=== PATIENT | female | born 1975 | race Caucasian/White ===

== ENCOUNTER 2018-05-09 21:27 | Outpatient (CLI) ==
[2018-05-09 21:50] VITALS: BMI 17.5
== END 2018-05-09 21:33 | disposition short-term general hospital (02) ==
LOC: AMBL 21:27
PROVIDERS: ATTEND Internal Medicine Geriatric Medicine
DX: R51 Headache (principal); M79.605 Pain in left leg; M79.604 Pain in right leg; M79.602 Pain in left arm; M79.601 Pain in right arm; M54.2 Cervicalgia; M25.512 Pain in left shoulder; S01.512A Laceration without foreign body of oral cavity, initial encounter; Y04.2XXA Assault by strike against or bumped into by another person, initial encounter

== ENCOUNTER 2018-05-09 21:41 | Emergency (ER) | payer OTHER ==
[2018-05-09 21:50] VITALS: TEMP 97.7; BMI 17.5
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
[2018-05-10 06:48] VITALS: BP 111/74
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
== END 2018-05-09 23:45 | disposition home or self-care (01) ==
LOC: ED 21:41
DX: M25.512 Pain in left shoulder (principal); M54.2 Cervicalgia; R51 Headache; M25.552 Pain in left hip; M25.551 Pain in right hip; M25.572 Pain in left ankle and joints of left foot; F17.210 Nicotine dependence, cigarettes, uncomplicated; Y04.0XXA Assault by unarmed brawl or fight, initial encounter
CPT/HCPCS: 36415; 84703; 99283

== ENCOUNTER 2019-02-28 15:20 | Inpatient (IN) ==
[2019-02-28] MEDS ORDERED: SODIUM CHLORIDE 1,000 ML IV STA (15:37)
[2019-02-28] MEDS ORDERED: TORADOL IVP STA (15:44)
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
[2019-02-28] MEDS ORDERED: LEVAQUIN 500 MG in PREMIX 100 ML D5W 1 BAG IV STA (16:58)
[2019-02-28] MEDS ORDERED: LEVAQUIN 100 ML IV ONE (17:05)
--- NOTE | 2019-02-28 18:05 | CT ---
EXAM: CT scan of the abdomen and pelvis without contrast CLINICAL HISTORY: flank pain, UTI TECHNIQUE: Helical imaging of the abdomen pelvis was performed without contrast. 3 mm thin axial im ages and coronal and sagittal reconstructions were provided for interpretation. Comparison none. FINDINGS: There is prominent swelling of the right kidney compared to the left kidney. The calyces of the kidneys are not dilated. The proximal ureters are not dilated. The small and large bowel loo ps are normal caliber. There is no free air. There has been previous cholecystectomy. The appendix was normal. The helical images obtained through the pelvis demonstrate a normal appearance of the rectum, urinary bladder. There is no free fluid seen within the pelvis. No retroperitoneal abnormalities are seen. Lung bases are clear. No lytic or blastic lesions are seen within the osseous structures. IMPRESSION: There is prominent swelling of the right kidney and the findings are suspicious for acut e right pyelonephritis. Limited evaluation without intravenous and oral contrast. There is no bowel obstruction.
[2019-02-28] MEDS ORDERED: TYLENOL PO STA (18:45)
[2019-02-28] MEDS ORDERED: LOVENOX SUBCUT SCH (19:00)
[2019-02-28] MEDS ORDERED: AZACTAM ONE (20:05)
[2019-02-28] MEDS: AZACTAM 1 GM in SODIUM CHLORIDE 50 ML IV SCH ×2 (20:19→20:39)
[2019-02-28] MEDS: SODIUM CHLORIDE 1,000 ML IV SCH (20:20)
[2019-02-28 20:57] VITALS: BMI 17.4
[2019-03-01] MEDS: SODIUM CHLORIDE 1,000 ML IV SCH ×3 (02:35→21:12)
[2019-03-01] MEDS ORDERED: ZOFRAN 4 MG/2 ML IVP PRN (08:03)
[2019-03-01] MEDS ORDERED: LIBRIUM PO PRN (08:05)
[2019-03-01] MEDS: PROTONIX PO SCH (08:18)
[2019-03-01] MEDS: AZACTAM 1 GM in SODIUM CHLORIDE 50 ML IV SCH ×2 (08:18→20:40)
[2019-03-01] MEDS: K-DUR PO SCH ×2 (08:18→20:41)
[2019-03-01] MEDS: LEVAQUIN 500 MG in PREMIX 100 ML D5W 1 BAG IV SCH (09:08)
--- NOTE | 2019-03-01 09:21 | PCM.PROG ---
Attending Provider: ATTENDING PROVIDER: [facility] This patient is seen with Lupe Handley, Nurse Practitioner. DATE OF SERVICE: 03/01/19 SUBJECTIVE: This 43 year old WHITE/ F was hospitalized 02/28/19. The patient is resting comfortably. She seems to be calm. No fever this morning. REVIEW OF SYSTEMS: CONSTITUTIONAL: No night sweats. No fatigue, malaise, lethargy. Fever. HEENT: Eyes: No visual changes. No eye pain. No eye discharge. ENT: No runny nose. No epistaxis. No sinus pain. No odynophagia. No congestion. RESPIRATORY: No cough, no congestion. No hemoptysis. No shortness of breath. CARDIOVASCULAR: No angina symptoms. No CHF symptoms. No atypical chest pain for CAD. No palpitations. No orthopnea.. GASTROINTESTINAL: No abdominal pain. No nausea or vomiting. No diarrhea or constipation. No hematemesis. No hematochezia. GENITOURINARY: No urgency. No frequency. No dysuria. No hematuria. No obstructive symptoms. No discharge. No pain. No significant abnormal bleeding. MUSCULOSKELETAL: No musculoskeletal pain; no joint swelling. Lower abdominal pain. NEUROLOGICAL: Awake, alert, oriented to time, place and person. No headache. No neck pain. No syncope. No seizures. No dizziness. PSYCHIATRIC: Not anxious. No depression. No suicidal thoughts. No homicidal thoughts. SKIN: No rash. No lesions. No wounds. ENDOCRINE: No unexplained weight loss. No weight gain. HEMATOLOGIC/LYMPHATIC: No anemia. No purpura. No petechiae. No prolonged or excessive bleeding. No palpable lymph nodes. PHYSICAL EXAMINATION: GENERAL: The patient is awake, alert and oriented, lying in bed in no distress. VITAL SIGNS: Temperature 98.8 F, Pulse 91, Respiratory Rate 16, BP 97/70, Pulse Ox 98% HEENT: Head normocephalic, atraumatic. Eyes: Extraocular muscles are intact. Pupils are equal, round and reactive to light and accommodation. Ears: No lesions. Nose appeared normal. Throat: No exudate or erythema. NECK: Supple. No JVD, no carotid bruit. No lymphadenopathy or thyromegaly. LUNGS: Diminished breath sounds. Clear to auscultation. Percussion note normal. Chest symmetrical. HEART: S1, S2, no S3. No murmurs. No cyanosis or clubbing. No ascites. Pulses: Dorsalis pedis and posterior tibial pulses +1 to +2 both sides. ABDOMEN: Soft. Non-tender. Bowel sounds active. No CVA tenderness. No mass felt. EXTREMITIES: No edema. Full range of motion of all extremities, equal. NEUROLOGIC: No focal deficit. Cranial nerves II through XII are grossly intact. No headache, no double vision or headache. SKIN: Not dry. Intact. Turgor-normal. LYMPHATIC: No palpable lymph nodes/no lymphedema. MUSCULOSKELETAL: Normal joints with no swelling. Muscle tone is normal. LAB REVIEW: 03/01/19 04:48 03/01/19 04:48 03/01/19 04:48: Sodium 138.9, Potassium 3.30 L, Chloride 109.2 H, Carbon Dioxide 23.5, Anion Gap 9.50, BUN 8.4, Creatinine 0.50 L, Estimated GFR (MDRD) 133.00, BUN/Creatinine Ratio 16.80, Glucose 112.2 H, Calcium 7.84 L, Total Bilirubin < 0.10 L, AST 23.0, ALT 17.8, Alkaline Phosphatase 87.4 D, Total Protein 5.43 L, Albumin 2.82 L, Globulin 2.61, Albumin/Globulin Ratio 1.08 03/01/19 04:48: WBC 14.00 H, RBC 3.50 L, Hgb 11.2 L, Hct 33.2 L, MCV 94.9, MCH 32.0 H, MCHC 33.7, RDW Coeff of Annelise 13.5, Plt Count 424, Immature Gran % (Auto) 0.4, Neut % (Auto) 67.7, Lymph % (Auto) 16.6, Potter % (Auto) 11.6 H, Eos % (Auto ) 3.2, Baso % (Auto) 0.5, Immature Gran # (Auto) 0.1, Neut # (Auto) 9.5 H, Lymph # (Auto) 2.3, Potter # (Auto) 1.6, Eos # (Auto) 0.5, Baso # (Auto) 0.1 02/28/19 15:55: Serum , Qual Negative 02/28/19 15:55: Lactic Acid 2.29 H 02/28/19 15:55: Procalcitonin 0.16 02/28/19 15:55: Sodium 136.2, Potassium 3.21 L, Chloride 100.2, Carbon Dioxide 23.5, Anion Gap 15.71, BUN 11.6, Creatinine 0.64, Estimated GFR (MDRD) 100.00, BUN/Creatinine Ratio 18.12, Glucose 100.6, Calcium 9.23, Total Bilirubin 0.31, AST 22.2, ALT 24.6, Alkaline Phosphatase 115.1, Total Protein 7.44, Albumin 4.30 , Globulin 3.14, Albumin/Globulin Ratio 1.36, Lipase 60.3 02/28/19 15:55: WBC 18.57 H, RBC 4.01 L, Hgb 12.8, Hct 37.6, MCV 93.8, MCH 31.9 H, MCHC 34.0, RDW Coeff of Annelise 13.3, Plt Count 487 H, Immature Gran % (Auto) 0.4 , Neut % (Auto) 80.9, Lymph % (Auto) 9.6 L, Potter % (Auto) 7.5, Eos % (Auto) 1.2 , Baso % (Auto) 0.4, Immature Gran # (Auto) 0.1, Neut # (Auto) 15.0 H, Lymph # ( Auto) 1.8, Potter # (Auto) 1.4, Eos # (Auto) 0.2, Baso # (Auto) 0.1 02/28/19 15:40: Urine Color Yellow, Urine Clarity Cloudy, Urine pH 7.0, Ur Specific [place] 1.015, Urine Protein 1+, Urine Glucose (UA) Negative, Urine Ketones Negative, Urine Blood 2+, Urine Nitrite Positive, Urine Bilirubin Negative, Urine Urobilinogen 0.2, Ur Leukocyte Esterase 2+, Urine Microscopic RBC 5-10, Urine Microscopic WBC 50-100, Ur Squamous Epith Cells 2-5, Urine Bacteria 3+ 02/28/19 15:40: Urine Opiates Screen Negative, Ur Oxycodone Screen Negative, Urine Methadone Screen Negative, Ur Propoxyphene Screen Negative, Ur Barbiturates Screen Negative, U Tricyclic Antidepress Negative, Ur Phencyclidine Scrn Negative, Ur Amphetamine Screen Positive, U Methamphetamines Scrn Positive, U Benzodiazepines Scrn Negative, Urine Cocaine Screen Negative, U Cannabinoids Screen Positive ASSESSMENT: Please see below. 1. Acute right pyelonephritis 2. Fever 3. Hypokalemia 4. Drug abuse, positive methamphetamine and cannabis PLAN: 1. Decrease IV fluids to 100cc an hour 2. Potassium 40meq PO daily 3. Librium 10mg twice a day PRN 4. Zofran 4mg PRN Plan and coordination of the patient's care discussed in the presence of Migration Specialist and nurse. SCRIBED BY: Roman BARKERist scribed while in presence of service performed by Dr. Huerta/Lupe Handley APRN on 03/01/19 ([id number])
--- NOTE | 2019-03-01 11:38 | HP ---
DATE OF SERVICE: 02/28/19 REASON FOR HOSPITALIZATION: Acute pyelonephritis with fever and chills. HISTORY OF PRESENT ILLNESS: 43-year-old white female came to the emergency room because of having fever and chills for the past five days. The patient said she did not take her temperature but she was sweating. The pain started in the suprapubic area and later on went to the right flank and posteriorly right kidney area according to her. The patient was seen and examined in the emergency room by Dr. Wilson and also I checked the patient in the emergency room. The patient at that time was oriented to time, place and person, not in any distress. PAST MEDICAL/SURGICAL HISTORY: 1. History of Crohn's disease since [address] Palacio. Last colonoscopy was approximately 2014. She was, at that time, said to be in remission according to the patient. She did not have her procedure done two years ago when she was having some problems with her Crohn's disease with bleeding per rectum. Urgency EGD and colonoscopy were scheduled but she didn't show. She said that she was having some marital issue at that time. 2. Other significant history, ablation from heavy bleeding so she doesn't have any menstrual cycle anymore. REVIEW OF SYSTEMS: CONSTITUTIONAL: Fatigue and weakness. No night sweats. No malaise, lethargy. No fever or chills. HEENT: Eyes: No visual changes. No eye pain. No eye discharge. ENT: No runny nose. No epistaxis. No sinus pain. No sore throat. No odynophagia. No ear pain. No congestion. RESPIRATORY: No cough, no congestion. No hemoptysis. No shortness of breath. CARDIOVASCULAR: No angina symptoms. No CHF symptoms. No atypical chest pain for CAD. No palpitations. No PND. No orthopnea. GASTROINTESTINAL: Appetite hasn't been good but she has been eating fairly. No abdominal pain. No nausea or vomiting. No diarrhea or constipation. No hematemesis. No hematochezia. GENITOURINARY: No urgency. No frequency. No dysuria. No hematuria. No obstructive symptoms. No discharge. No pain. No significant abnormal bleeding. MUSCULOSKELETAL: No musculoskeletal pain. No joint swelling. No arthritis. NEUROLOGICAL: No headache. No neck pain. No syncope. No seizures. No dizziness. PSYCHIATRIC: Not anxious. No depression. No suicidal thoughts. No homicidal thoughts. SKIN: No rash. No lesions. No wounds. ENDOCRINE: No unexplained weight loss. No weight gain. HEMATOLOGIC/LYMPHATIC: No anemia. No purpura. No petechiae. No prolonged or excessive bleeding. No palpable lymph nodes. PERSONAL/FAMILY/SOCIAL HISTORY: The patient is , lives with father. He has two kids 23 and 26 years old. She does all activity of daily living. She is unemployed. MEDICATIONS: NONE ALLERGIES: IODINATED CONTRAST ORAL AND IV DYE, PENICILLINS, SULFA, IODINE PHYSICAL EXAMINATION: GENERAL: The patient is oriented to time, place and person. VITAL SIGNS: Temperature in the ER 102, pulse 100/min, respiratory rate 16, BP 130/70. HEENT: Head normocephalic, atraumatic. Mucous membranes dry. Eyes: Extraocular muscles are intact. Pupils are equal, round and reactive to light and accommodation. Ears: No lesions. Nose appeared normal. Throat: No exudate or erythema. NECK: Supple. No JVD, no carotid bruit. No lymphadenopathy or thyromegaly. LUNGS: Clear to auscultation. Percussion note normal. Chest symmetrical. HEART: S1, S2, no S3. No murmurs. No cyanosis or clubbing. No ascites. Pulses: Dorsalis pedis and posterior tibial pulses +1 to +2 bilaterally. ABDOMEN: Not distended. Soft. Mild tenderness in the right flank area. No rebound tenderness. Bowel sounds active. No CVA tenderness. No mass felt. EXTREMITIES: No pedal edema. Full range of motion of all extremities, equal. NEUROLOGIC: Complete SPORTS RECRUITER examinatin normal. No focal deficit. Cranial nerves II through XII are grossly intact. No headache, no double vision or headache. SKIN: Dry. Intact. Turgor - normal. LYMPHATIC: No palpable lymph nodes/no lymphedema. MUSCULOSKELETAL: Normal joints with no swelling. Muscle tone is normal. CT scan of the abdomen verbal report from Dr. Wilson showed possibility of right acute pyelonephritis, stranding. No colonic or bowel obstruction. ASSESSMENT: 1. ACUTE PYELONEPHRITIS. 2. DEHYDRATION 3. HISTORY OF CROHN'S DISEASE 4. HISTORY OF SMOKING PLAN: 1. Admit the patient. 2. Levaquin has already been given 500 mg IV q.24. 3. Azactam 1 gm q.12hr will be added. 4. IV fluids 75 cc/hr. ADDENDUM: The patient does not have a family physician. The last one she saw was Dr. Jean-Baptiste who was a foam rubber fabricator. The patient is strongly advised to get a private M.D. CONDITION: Stable. TIME SPENT: More than 70 minutes. MTDD
[2019-03-01] MEDS ORDERED: NICODERM 14 MG TD ONE (12:32)
[2019-03-01] MEDS: NICODERM 14 MG TD SCH (12:41)
[2019-03-01] MEDS: TYLENOL PO PRN (16:47)
[2019-03-01] MEDS: LOVENOX SUBCUT SCH (20:41)
[2019-03-02] MEDS: PROTONIX PO SCH (05:46)
[2019-03-02] MEDS: K-DUR PO SCH ×2 (08:53→20:34)
[2019-03-02] MEDS: NICODERM 14 MG TD SCH (08:53)
[2019-03-02] MEDS: SODIUM CHLORIDE 1,000 ML IV SCH ×2 (08:53→20:25)
[2019-03-02] MEDS: AZACTAM 1 GM in SODIUM CHLORIDE 50 ML IV SCH ×2 (08:54→20:30)
--- NOTE | 2019-03-02 09:35 | PCM.PROG ---
Attending Provider: ATTENDING PROVIDER: [facility] DATE OF SERVICE: 03/02/19 SUBJECTIVE: This 43 year old WHITE/ F was hospitalized 02/28/19 with urosepsis. The patient has improved. She is afebrile and her appetite has improved. WBC is normal. Urine showed gram negative rods. Blood culture is negative. REVIEW OF SYSTEMS: CONSTITUTIONAL: No night sweats. No fatigue, malaise, lethargy. No fever or chills. HEENT: Eyes: No visual changes. No eye pain. No eye discharge. ENT: No runny nose. No epistaxis. No sinus pain. No odynophagia. No congestion. RESPIRATORY: No cough, no congestion. No hemoptysis. No shortness of breath. CARDIOVASCULAR: No angina symptoms. No CHF symptoms. No atypical chest pain for CAD. No palpitations. No orthopnea.. GASTROINTESTINAL: No abdominal pain. No nausea or vomiting. No diarrhea or constipation. No hematemesis. No hematochezia. GENITOURINARY: No urgency. No frequency. No dysuria. No hematuria. No obstructive symptoms. No discharge. No pain. No significant abnormal bleeding. MUSCULOSKELETAL: No musculoskeletal pain; no joint swelling. NEUROLOGICAL: Awake, alert, oriented to time, place and person. No headache. No neck pain. No syncope. No seizures. No dizziness. PSYCHIATRIC: Not anxious. No depression. No suicidal thoughts. No homicidal thoughts. SKIN: No rash. No lesions. No wounds. ENDOCRINE: No unexplained weight loss. No weight gain. HEMATOLOGIC/LYMPHATIC: No anemia. No purpura. No petechiae. No prolonged or excessive bleeding. No palpable lymph nodes. PHYSICAL EXAMINATION: GENERAL: The patient is awake, alert and oriented, lying in bed in no distress. VITAL SIGNS: Temperature 97.4 F, Pulse 89, Respiratory Rate 16, BP 92/67, Pulse Ox 99% HEENT: Head normocephalic, atraumatic. Eyes: Extraocular muscles are intact. Pupils are equal, round and reactive to light and accommodation. Ears: No lesions. Nose appeared normal. Throat: No exudate or erythema. NECK: Supple. No JVD, no carotid bruit. No lymphadenopathy or thyromegaly. LUNGS: Clear to auscultation. Percussion note normal. Chest symmetrical. HEART: S1, S2, no S3. No murmurs. No cyanosis or clubbing. No ascites. Pulses: Dorsalis pedis and posterior tibial pulses +1 to +2 both sides. ABDOMEN: Soft. Non-tender. Bowel sounds active. No CVA tenderness. No mass felt. EXTREMITIES: No edema. Full range of motion of all extremities, equal. NEUROLOGIC: No focal deficit. Cranial nerves II through XII are grossly intact. No headache, no double vision or headache. SKIN: Warm and dry. Intact. Turgor-normal. LYMPHATIC: No palpable lymph nodes/no lymphedema. MUSCULOSKELETAL: Normal joints with no swelling. Muscle tone is normal. LAB REVIEW: 03/02/19 04:45 03/02/19 04:45 03/02/19 04:45: Sodium 139.3, Potassium 4.20, Chloride 112.6 H, Carbon Dioxide 21.1 L, Anion Gap 9.80, BUN 5.8 L, Creatinine 0.49 L, Estimated GFR (MDRD) 137.00, BUN/Creatinine Ratio 11.83, Glucose 107.2 H, Calcium 7.98 L, Total Bilirubin < 0.10 L, AST 24.3, ALT 16.9, Alkaline Phosphatase 89.5, Total Protein 5.41 L, Albumin 2.77 L, Globulin 2.64, Albumin/Globulin Ratio 1.04 03/02/19 04:45: WBC 9.40, RBC 3.65 L, Hgb 11.4 L, Hct 34.6 L, MCV 94.8, MCH 31.2 H, MCHC 32.9, RDW Coeff of Annelise 13.7, Plt Count 453 H, Immature Gran % (Auto ) 0.3, Neut % (Auto) 51.4, Lymph % (Auto) 32.3, Keith % (Auto) 9.9, Eos % (Auto) 5.2, Baso % (Auto) 0.9, Immature Gran # (Auto) 0.0, Neut # (Auto) 4.8, Lymph # ( Auto) 3.0, Keith # (Auto) 0.9, Eos # (Auto) 0.5, Baso # (Auto) 0.1 02/28/19 16:20: Spotted Fever Grp IgM 0.82 ASSESSMENT: Please see below. 1. Acute pyelonephritis seems to be responding to treatment 2. Urine gram negative rods waiting for identification 3. CT of abdomen with regards to kidney abnormality that was seen before. Allergies to contrast, CT will be performed without contrast. PLAN: 1. Followup with [facility] on discharge 2. Counseling for smoking done, advised to quit street drugs. 3. BMI 17.4, advised to gain weight. Plan and coordination of the patient's care discussed in the presence of Wildlife Enforcement Major and nurse. SCRIBED BY: Merlin BARKER scribed while in presence of service performed by Dr. [facility]ELA [facility] on 03/02/19 ([id number])
[2019-03-02] MEDS: LEVAQUIN 500 MG in PREMIX 100 ML D5W 1 BAG IV SCH (10:19)
--- NOTE | 2019-03-02 11:33 | CT ---
EXAM: CT abdomen pelvis without contrast HISTORY: Right flank pain COMPARISON: 02/28/2019 TECHNIQUE: CT abdomen pelvis performed without intravenous contrast. Coronal and sagittal reformatt ed images obtained. FINDINGS: The lung bases clear. No free air. No acute abnormalities of the bones. Heart normal in size. Evaluation organ parenchyma limited without contrast. Liver unremarkable. The the patient s tatus post cholecystectomy. Pancreas unremarkable. Spleen with granulomatous calcification otherwis e unremarkable. Adrenals unremarkable. Aorta normal in caliber. Bladder unremarkable. Uterus unre markable. No definite lymphadenopathy or ascites identified, noting paucity of intra-abdominal fat a nd lack of intravenous contrast limit evaluation. The stomach unremarkable. No dilated loops of sma ll bowel. Appendix appears normal. Colon unremarkable. The right kidney is somewhat malrotated ant eriorly. There is enlargement of the right kidney with associated right perinephric stranding. Mild right pelviectasis versus extrarenal pelvis. No obstructing calculus identified. Left kidney unrem arkable. No calculi visualized in the normal course of the ureters. Bladder unremarkable. Small fa t-containing periumbilical hernia. Small foci of air anterior wall likely related to injection of me dicine. IMPRESSION: 1. Enlargement of the right kidney with associated right perinephric inflammation. Mild associated right pelviectasis versus extrarenal pelvis, without obstructing calculus identified. Findings are s uspicious for acute right-sided pyelonephritis. Mild associated right pelviectasis versus extrarenal pelvis, without obstructing calculus identified. Findings similar to prior examination. 2. Evaluation limited without contrast.
[2019-03-02] MEDS: LOVENOX SUBCUT SCH (20:26)
[2019-03-02] MEDS: TYLENOL PO PRN (20:46)
[2019-03-03 05:16] VITALS: TEMP 97.6
[2019-03-03] MEDS: PROTONIX PO SCH (05:39)
[2019-03-03] MEDS: LEVAQUIN 500 MG in PREMIX 100 ML D5W 1 BAG IV SCH (08:08)
[2019-03-03] MEDS: K-DUR PO SCH (08:09)
[2019-03-03] MEDS: SODIUM CHLORIDE 1,000 ML IV SCH ×2 (08:09→10:57)
[2019-03-03] MEDS: NICODERM 14 MG TD SCH (08:09)
[2019-03-03] MEDS: AZACTAM 1 GM in SODIUM CHLORIDE 50 ML IV SCH (09:09)
--- NOTE | 2019-03-03 09:57 | PCM.PROG ---
Attending Provider: ATTENDING PROVIDER: [facility] This patient is seen with Lupe Handley, Nurse Practitioner. DATE OF SERVICE: 03/03/19 SUBJECTIVE: This 43 year old WHITE/ F was hospitalized 02/28/19. The patient is resting comfortably. Has had no fever, eating well. She is ready for discharge today. REVIEW OF SYSTEMS: CONSTITUTIONAL: No night sweats. No fatigue, malaise, lethargy. No fever or chills. HEENT: Eyes: No visual changes. No eye pain. No eye discharge. ENT: No runny nose. No epistaxis. No sinus pain. No odynophagia. No congestion. RESPIRATORY: No cough, no congestion. No hemoptysis. No shortness of breath. CARDIOVASCULAR: No angina symptoms. No CHF symptoms. No atypical chest pain for CAD. No palpitations. No orthopnea.. GASTROINTESTINAL: Right flank pain. No nausea or vomiting. No diarrhea or constipation. No hematemesis. No hematochezia. GENITOURINARY: No urgency. No frequency. No dysuria. No hematuria. No obstructive symptoms. No discharge. No pain. No significant abnormal bleeding. MUSCULOSKELETAL: No musculoskeletal pain; no joint swelling. NEUROLOGICAL: Awake, alert, oriented to time, place and person. No headache. No neck pain. No syncope. No seizures. No dizziness. PSYCHIATRIC: Not anxious. No depression. No suicidal thoughts. No homicidal thoughts. SKIN: No rash. No lesions. No wounds. ENDOCRINE: No unexplained weight loss. No weight gain. HEMATOLOGIC/LYMPHATIC: No anemia. No purpura. No petechiae. No prolonged or excessive bleeding. No palpable lymph nodes. PHYSICAL EXAMINATION: GENERAL: The patient is awake, alert and oriented, lying in bed in no distress. VITAL SIGNS: Temperature 97.6 F, Pulse 81, Respiratory Rate 18, BP 98/76, Pulse Ox 99% HEENT: Head normocephalic, atraumatic. Eyes: Extraocular muscles are intact. Pupils are equal, round and reactive to light and accommodation. Ears: No lesions. Nose appeared normal. Throat: No exudate or erythema. NECK: Supple. No JVD, no carotid bruit. No lymphadenopathy or thyromegaly. LUNGS: Diminished breath sounds. Clear to auscultation. Percussion note normal. Chest symmetrical. HEART: S1, S2, no S3. No murmurs. No cyanosis or clubbing. No ascites. Pulses: Dorsalis pedis and posterior tibial pulses +1 to +2 both sides. ABDOMEN: Soft. Non-tender. Bowel sounds active. Mild CVA tenderness on right. No mass felt. EXTREMITIES: No edema. Full range of motion of all extremities, equal. NEUROLOGIC: No focal deficit. Cranial nerves II through XII are grossly intact. No headache, no double vision or headache. SKIN: Not dry. Intact. Turgor-normal. LYMPHATIC: No palpable lymph nodes/no lymphedema. MUSCULOSKELETAL: Normal joints with no swelling. Muscle tone is normal. LAB REVIEW: 03/03/19 05:00 03/03/19 05:00 03/03/19 05:00: Sodium 137.9, Potassium 4.20, Chloride 108.9 H, Carbon Dioxide 24.1, Anion Gap 9.10, BUN 5.5 L, Creatinine 0.47 L, Estimated GFR (MDRD) 143.00 , BUN/Creatinine Ratio 11.70, Glucose 82.3, Calcium 8.33 L, Total Bilirubin 0.15 L, AST 29.8, ALT 23.8, Alkaline Phosphatase 90.3, Total Protein 5.84 L, Albumin 3.07 L, Globulin 2.77, Albumin/Globulin Ratio 1.10 03/03/19 05:00: WBC 9.17, RBC 3.84 L, Hgb 12.1, Hct 36.2 L, MCV 94.3, MCH 31.5 H , MCHC 33.4, RDW Coeff of Annelise 13.9, Plt Count 543 H, Immature Gran % (Auto) 0.4 , Neut % (Auto) 49.8, Lymph % (Auto) 35.6, [place] % (Auto) 6.9, Eos % (Auto) 6.4, Baso % (Auto) 0.9, Immature Gran # (Auto) 0.0, Neut # (Auto) 4.6, Lymph # (Auto ) 3.3, [place] # (Auto) 0.6, Eos # (Auto) 0.6, Baso # (Auto) 0.1 02/28/19 16:20: Rickettsia IgG Ab Negative ASSESSMENT: Please see below. 1. Right Pyelonephritis PLAN: 1. Discharge home today 2. Information given regarding smoking cessation and substance abuse. 3. The patient denies any further treatment. 4. Followup in one week in [facility] 5. Levaquin 500mg daily for 7 days Plan and coordination of the patient's care discussed in the presence of Contract Accountant and nurse. SCRIBED BY: Roman BARKERist scribed while in presence of service performed by Dr. Huerta/Lupe Handley APRN on 03/03/19 ([id number])
[2019-03-03 10:26] VITALS: BP 94/64
--- NOTE | 2019-03-03 11:24 | CM.DICTOOL ---
ADMISSION: 02/28/19 19:36 DISCHARGE: MARCH 03, 2019 DATE OF SERVICE: 03/03/19 FINAL DIAGNOSIS ACUTE PYELONEPHRITIS, RIGHT SIDED FEVER, RESOLVED HYPOKALEMIA, RESOLVED HEADACHE CROHN'S DX RECURRENT UTI ANOREXIA ADD DEPRESSION ANXIETY SUBSTANCE ABUSE METHAMPHETAMINE AMPHETAMINES CANNABIS SMOKER UTERINE ABLASION CHOLECYSTECTOMY COLOSCOPY 2014 DR[address] BEE ENDOSCOPY 2014 DR. BEE MAMMOGRAM 2009 LAST VITALS Temp Pulse Resp BP Pulse Ox 97.6 F 81 18 98/76 99 03/03/19 05:16 03/03/19 05:16 03/03/19 05:16 03/03/19 05:16 03/03/19 05:16 TAKE THESE MEDICATIONS AT HOME Acetaminophen (Tylenol) 650 mg PO Q4H PRN PRN Reason: fever or pain Last Admin: 03/02/19 20:46 Dose: 650 mg Pantoprazole Sodium (Protonix) 40 mg PO QDAC LEIGHANN Last Admin: 03/03/19 05:39 Dose: 40 mg Levaquin 500 mg PO daily for seven days ALLERGIES Iodinated Contrast- Oral and IV Dye Adverse Reaction (Verified 02/28/19 15:29) iodine Adverse Reaction (Verified 02/28/19 15:29) Penicillins Adverse Reaction (Verified 02/28/19 15:29) Sulfa (Sulfonamide Antibiotics) Adverse Reaction (Verified 02/28/19 15:29) DISCONTINUED MEDICATIONS NONE NEW PRESCRIPTIONS: LEVAQUIN 500 MG PO DAILY FOR SEVEN DAYS SMOKING: SMOKER DISEASE SPECIFIC EDUCATION: PYELONEPHRTITS UTI SUBSTANCE ABUSE COUNSELING SMOKING CESSATON LAB REVIEW: 03/03/19 05:00 03/03/19 05:00 03/03/19 05:00: Sodium 137.9, Potassium 4.20, Chloride 108.9 H, Carbon Dioxide 24.1, Anion Gap 9.10, BUN 5.5 L, Creatinine 0.47 L, Estimated GFR (MDRD) 143.00 , BUN/Creatinine Ratio 11.70, Glucose 82.3, Calcium 8.33 L, Total Bilirubin 0.15 L, AST 29.8, ALT 23.8, Alkaline Phosphatase 90.3, Total Protein 5.84 L, Albumin 3.07 L, Globulin 2.77, Albumin/Globulin Ratio 1.10 03/03/19 05:00: WBC 9.17, RBC 3.84 L, Hgb 12.1, Hct 36.2 L, MCV 94.3, MCH 31.5 H , MCHC 33.4, RDW Coeff of Annelise 13.9, Plt Count 543 H, Immature Gran % (Auto) 0.4 , Neut % (Auto) 49.8, Lymph % (Auto) 35.6, [place] % (Auto) 6.9, Eos % (Auto) 6.4, Baso % (Auto) 0.9, Immature Gran # (Auto) 0.0, Neut # (Auto) 4.6, Lymph # (Auto ) 3.3, [place] # (Auto) 0.6, Eos # (Auto) 0.6, Baso # (Auto) 0.1 02/28/19 16:20: Rickettsia IgG Ab Negative PLAN: DISCHARGE HOME TODAY 03/03/2019 REGULAR DIET - DRINK PLENTY OF WATER ACTIVITY TOLERATED FOLLOW UP APPOINTMENT HAS BEEN SCHEDULED WITH ELANA AT THE [facility] ON WednesdayMarch AT 930 AM. PLEASE CALL [phone] TO RESCHEDULE IF UNABLE TO KEEP THAT APPOINTMENT. RETURN TO ER IF FEVER RETURNS. CODE STATUS: FULL CODE ALERT, ORIENTED X4. MRS. TARIQ IS AGREEABLE TO DISCHARGE HOME TODAY. SPEECH IS CLEAR .SHE IS ABLE TO PERFORM ALL ACTIVITIES OF DAILY LIVING INDEPENDENTLY. SHE DOES NOT REQUIRE ASSISTIVE DEVICE FOR AMBULATION. SHE IS CONTINENT OF BOWEL AND BLADDER. DENIES BURNING UPON URINATION. SKIN WARM, DRY, INTACT. HYDRATION STATUS HAS IMPROVED. SKIN TURGOR HAS IMPROVED. APPETITE IS FAIR TO GOOD. MAYELA HUERTA M.D. REJI GONZÁLES APRN
--- NOTE | 2019-03-03 14:39 | PN ---
DATE OF SERVICE: 03/01/19 SUBJECTIVE: The patient was seen and examined this morning with the Nurse Practitioner. The patient is practically afebrile and feeling better. The patient had test positive for street drugs, she has been put on Librium for that. TIME SPENT: More than 30 minutes. Plan and coordination of the patient's care discussed in the presence of nurse. DANTE
--- NOTE | 2019-03-07 13:43 | DS ---
DATE OF SERVICE: 03/03/19 FINAL DIAGNOSIS: ACUTE PYELONEPHRITIS, RIGHT SIDED FEVER, RESOLVED HYPOKALEMIA, RESOLVED HEADACHE CROHN'S DX RECURRENT UTI ANOREXIA ADD DEPRESSION ANXIETY SUBSTANCE ABUSE METHAMPHETAMINE AMPHETAMINES CANNABIS SMOKER UTERINE ABLATION CHOLECYSTECTOMY COLOSCOPY 2014 DR[address] BEE ENDOSCOPY 2014 DR. BEE MAMMOGRAM 2008 LAST VITALS: Temp Pulse Resp BP Pulse Ox 97.6 F 81 18 98/76 99 03/03/19 05:16 03/03/19 05:16 03/03/19 05:16 03/03/19 05:16 03/03/19 05:16 DISCHARGE INSTRUCTIONS: DISCHARGE HOME TODAY 03/03/2019. FOLLOW UP APPOINTMENT HAS BEEN SCHEDULED WITH ELANA AT THE [facility] ON WednesdayMarch AT 930 AM. PLEASE CALL [phone] TO RESCHEDULE IF UNABLE TO KEEP THAT APPOINTMENT. RETURN TO ER IF FEVER RETURNS. TAKE THESE MEDICATIONS AT HOME: Acetaminophen (Tylenol) 650 mg PO Q4H PRN Pantoprazole Sodium (Protonix) 40 mg PO QDAC LEIGHANN Levaquin 500 mg PO daily for seven days ALLERGIES: Iodinated Contrast- Oral and IV Dye Adverse Reaction (Verified 02/28/19 15:29) iodine Adverse Reaction (Verified 02/28/19 15:29) Penicillins Adverse Reaction (Verified 02/28/19 15:29) Sulfa (Sulfonamide Antibiotics) Adverse Reaction (Verified 02/28/19 15:29) DISCONTINUED MEDICATIONS: NONE NEW PRESCRIPTIONS: LEVAQUIN 500 MG PO DAILY FOR SEVEN DAYS SMOKING: SMOKER DISEASE SPECIFIC EDUCATION: PYELONEPHRITICS UTI SUBSTANCE ABUSE COUNSELING SMOKING CESSATION DIET: REGULAR DIET - DRINK PLENTY OF WATER ACTIVITY: TOLERATED CODE STATUS: FULL CODE HOSPITAL COURSE: This is a hospitalist patient was admitted to us. She presented to the emergency room with fever and right sided lower back pain. U/A was abnormal and CT scan revealed chances associated with right pyelonephritis. She had some right sided hydronephrosis. She was admitted and placed on Rocephin 1gram IV daily along with Azactam both were sensitive on the urine culture. She had fever initially and some nausea. She was given Zofran IV and all of this has resolved. She has been afebrile for 24 hours. She has been eating 75-100% of her meals. Initially she had some hypokalemia and this has since resolved. Repeat CT of the abdomen showed slight improvement with the pyelonephritis. She also has a history of Crohn's disease and substance abuse. She was positive for methamphetamines, cannabis and amphetamines in the emergency room. She denied usage and of course refused any further help or treatment for substance abuse. Kidney function is normal, BUN 5.5, creatinine 0.47, WBC is down at 9.1 and hgb 12.1. WBC was initially 14,000. She has showed significant improvement. Culture is sensitive to Levaquin and we will send her home with Levaquin 500mg daily for the next 7 days. She is to followup at the clinic next week as she has been to the [facility] before and an appointment has been made. We have instructed the importance of continuing her antibiotics. If she starts with fever or recurrence of pain she is to return to the emergency room. TIME SPENT: More than 60 minutes. DANTE
--- NOTE | 2019-03-08 14:44 | PN ---
DATE OF SERVICE: 03/03/19 SUBJECTIVE: 43-year-old white female hospitalized with urosepsis. The patient is afebrile, feeling a lot better. Appetite has improved. The patient was seen early in the morning. The patient will be seen and discharged by nurse practitioner. CONDITION: Stable. TIME SPENT: More than 30 minutes. Plan and coordination of the patient's care discussed in the presence of nurse. DANTE
--- NOTE | 2019-03-08 14:45 | PN ---
BILLING 02/28/19 ADMISSION DAY LEVEL 5 03/01/19 INTERMEDIATE 03/02/19 INTERMEDIATE 03/03/19 DISCHARGE MTDD
== END 2019-03-03 13:05 | disposition home or self-care (01) | DRG 551 ==
LOC: ED 15:20 → MEDSURG B 19:36
PROVIDERS: ADMIT Internal Medicine; ATTEND Internal Medicine
DX: M54.5 Low back pain (principal); A41.9 Sepsis, unspecified organism; N39.0 Urinary tract infection, site not specified; N10 Acute pyelonephritis; K50.90 Crohn's disease, unspecified, without complications; E87.6 Hypokalemia; E86.0 Dehydration; F98.8 Other specified behavioral and emotional disorders with onset usually occurring in childhood and adolescence; F41.8 Other specified anxiety disorders; F15.10 Other stimulant abuse, uncomplicated; R30.9 Painful micturition, unspecified; R50.9 Fever, unspecified; R53.1 Weakness; R63.0 Anorexia; R30.0 Dysuria; R35.0 Frequency of micturition; R51 Headache; Z72.0 Tobacco use
CPT/HCPCS: 36415; 74176; 80053; 80306; 81001; 83605; 83690; 84145; 84703; 85025; 86757; 87040; 87086; 87186; 93005; 93010; 96361; 96365; 96366; 96375; 97802; 99285